=== PATIENT | male | born 1945 | race Caucasian/White ===

== ENCOUNTER 2017-03-19 19:31 | Emergency (ER) | payer MEDICARE, MEDICAID ==
[~2017-03-19] VITALS: Ht 177.8 cm; Wt 99.5 kg
[~2017-03-19 19:31] MED LIST: ARIP15TA3 PO; ASPI-1265 PO; AZIT250T PO; AZIT500T5 PO; CLOP75TA35 PO; CLOT12CR TOP; ESOM40CA PO; FINA5TAB11 PO; FLO0.4C PO; FURO20TA4 PO; METO25TA6 PO; MYCOL30CR TP; ONDA8TAB6 PO; PRAV40TA65 PO; RAMI2.5C PO; SYN0.075T PO; VAL5T PO; VENL150C58 PO
[2017-03-19 20:11] LABS: BASOPHILS # (AUTO) 0.1 X10'3 (0-0.2); BASOPHILS % (AUTO) 1.1 % (0-1); EOSINOPHILS # (AUTO) 0.1 X10'3 (0-0.9); EOSINOPHILS % (AUTO) 1.8 % (0-6); HEMATOCRIT 39.2 % (42.0-52.0); HEMOGLOBIN 13.1 g/dl (14.0-17.9); LYMPHOCYTES % (AUTO) 25.3 % (21-51); MEAN CORPUSCULAR HEMOGLOBIN 30.1 PG (27.0-31.0); MEAN CORPUSCULAR HGB CONC 33.5 % (33.0-36.5); MEAN CORPUSCULAR VOLUME 90.1 FL (78-98); MEAN PLATELET VOLUME 7.9 FL (7.4-10.4); MONOCYTES # (AUTO) 0.7 X10'3 (0-0.9); MONOCYTES % (AUTO) 8.1 % (2-12); NEUTROPHILS # (AUTO) 5.2 X10'3 (1.8-7.7); NEUTROPHILS % (AUTO) 63.7 % (42-75); PLATELET COUNT 173 X10'3 (140-440); RED BLOOD COUNT 4.36 X10'6 (4.70-6.10); RED CELL DISTRIBUTION WIDTH 15.3 % (11.5-14.5); WHITE BLOOD COUNT 8.1 X10'3 (4.5-11.0)
[2017-03-19 20:20] LABS: PARTIAL THROMBOPLASTIN TIME 25 SECONDS (22-32); PROTHROMBIN TIME 10.2 SECONDS (9.0-12.0)
[2017-03-19 20:23] LABS: ALANINE AMINOTRANSFERASE 33 U/L (12-78); ALBUMIN 3.8 G/DL (3.4-5.0); ALBUMIN/GLOBULIN RATIO 1.1 (1.1-1.5); ALKALINE PHOSPHATASE 97 IU/L (46-116); ANION GAP 7 (8-16); ASPARTATE AMINO TRANSFERASE 21 U/L (10-37); BILIRUBIN,TOTAL 0.3 MG/DL (0.1-1.0); BLOOD UREA NITROGEN 26 MG/DL (7-18); BUN/CREATININE RATIO 19.3 (5.4-32.0); CALCIUM 8.9 MG/DL (8.5-10.1); CHLORIDE 105 MMOL/L (99-107); CREATININE 1.35 MG/DL (0.60-1.10); GLUCOSE 132 MG/DL (70-104); POTASSIUM 4.1 MMOL/L (3.5-5.1); SODIUM 139 MMOL/L (135-145); TOTAL CARBON DIOXIDE 27.3 MMOL/L (24-32); TOTAL PROTEIN 7.3 G/DL (6.4-8.2); eGFR 52 ML/MIN
[2017-03-19] MEDS ORDERED: ipratropium/albuterol 3ml nebule NEB ONE (20:25)
[2017-03-19] MEDS ORDERED: albuterol 2.5 MG/3 ML nebule NEB ONE (20:25)
[2017-03-19 21:39] VITALS: BP 141/63
== END 2017-03-19 21:42 | disposition home or self-care (01) ==
LOC: ER 19:32
DX: R06.01 Orthopnea (principal); I25.2 Old myocardial infarction; I48.91 Unspecified atrial fibrillation; I10 Essential (primary) hypertension; J44.9 Chronic obstructive pulmonary disease, unspecified; K21.9 Gastro-esophageal reflux disease without esophagitis; G89.29 Other chronic pain; I25.10 Atherosclerotic heart disease of native coronary artery without angina pectoris; Z79.899 Other long term (current) drug therapy; Z79.82 Long term (current) use of aspirin; Z87.442 Personal history of urinary calculi; Z90.49 Acquired absence of other specified parts of digestive tract; Z95.1 Presence of aortocoronary bypass graft
CPT/HCPCS: 36415; 71045; 80053; 84484; 85025; 85610; 85730; 93005; 94640; 94760; 99285

== ENCOUNTER 2017-04-24 02:00 | Emergency (ER) | payer MEDICARE, MEDICAID ==
[~2017-04-24] VITALS: Ht 177.8 cm; Wt 99.7 kg
[2017-04-24] MEDS ORDERED: HYDR-3965 PO (02:16)
[2017-04-24] MEDS ORDERED: METH500T PO (02:16)
[2017-04-24] MEDS ORDERED: ONDA4TAB9 SL (02:16)
[2017-04-24 02:20] VITALS: BP 113/79
== END 2017-04-24 02:23 | disposition home or self-care (01) ==
LOC: ER 02:01
DX: S39.012A Strain of muscle, fascia and tendon of lower back, initial encounter (principal); S29.019A Strain of muscle and tendon of unspecified wall of thorax, initial encounter; I48.91 Unspecified atrial fibrillation; I25.10 Atherosclerotic heart disease of native coronary artery without angina pectoris; I10 Essential (primary) hypertension; I25.2 Old myocardial infarction; J44.9 Chronic obstructive pulmonary disease, unspecified; K21.9 Gastro-esophageal reflux disease without esophagitis; G89.29 Other chronic pain; Z90.49 Acquired absence of other specified parts of digestive tract; Z95.1 Presence of aortocoronary bypass graft; Z79.82 Long term (current) use of aspirin; Z79.899 Other long term (current) drug therapy; X50.1XXA Overexertion from prolonged static or awkward postures, initial encounter; Y93.89 Activity, other specified; Y92.89 Other specified places as the place of occurrence of the external cause; Y99.8 Other external cause status
CPT/HCPCS: 99283

== ENCOUNTER 2017-05-09 22:40 | Emergency (ER) | payer MEDICARE, MEDICAID ==
[~2017-05-09] VITALS: Ht 177.8 cm; Wt 92.8 kg
[~2017-05-09 22:40] MED LIST changes: +HYDR-3965 PO; +METH500T PO; +ONDA4TAB9 SL
[2017-05-09 23:02] VITALS: BP 121/67
== END 2017-05-10 05:16 | disposition left against medical advice (07) ==
LOC: ER 22:40
DX: M54.9 Dorsalgia, unspecified (principal); Z53.21 Procedure and treatment not carried out due to patient leaving prior to being seen by health care provider

== ENCOUNTER 2017-06-02 22:55 | Emergency (ER) | payer MEDICARE, MEDICAID ==
[~2017-06-02] VITALS: Ht 177.8 cm; Wt 85.2 kg
[~2017-06-02 22:55] MED LIST changes: -HYDR-3965 PO; -ONDA4TAB9 SL
[2017-06-02] MEDS ORDERED: aspirin 81mg tab.chew PO ONE (23:00)
[2017-06-02 23:21] LABS: BASOPHILS % (AUTO) 0.6 % (0-1); EOSINOPHILS # (AUTO) 0.3 X10'3 (0-0.9); EOSINOPHILS % (AUTO) 3.6 % (0-6); HEMATOCRIT 39.1 % (42.0-52.0); LYMPHOCYTES % (AUTO) 24.4 % (21-51); MEAN CORPUSCULAR HEMOGLOBIN 29.1 PG (27.0-31.0); MEAN CORPUSCULAR HGB CONC 33.1 % (33.0-36.5); MEAN CORPUSCULAR VOLUME 87.9 FL (78-98); MEAN PLATELET VOLUME 7.4 FL (7.4-10.4); MONOCYTES # (AUTO) 0.6 X10'3 (0-0.9); MONOCYTES % (AUTO) 7.7 % (2-12); NEUTROPHILS # (AUTO) 5.3 X10'3 (1.8-7.7); NEUTROPHILS % (AUTO) 63.7 % (42-75); PLATELET COUNT 183 X10'3 (140-440); RED BLOOD COUNT 4.46 X10'6 (4.70-6.10); RED CELL DISTRIBUTION WIDTH 16.1 % (11.5-14.5); WHITE BLOOD COUNT 8.4 X10'3 (4.5-11.0)
[2017-06-02 23:44] LABS: ALANINE AMINOTRANSFERASE 28 U/L (12-78); ALBUMIN 3.4 G/DL (3.4-5.0); ALBUMIN/GLOBULIN RATIO 0.8 (1.1-1.5); ALKALINE PHOSPHATASE 100 IU/L (46-116); ANION GAP 9 (8-16); ASPARTATE AMINO TRANSFERASE 23 U/L (10-37); BILIRUBIN,TOTAL 0.2 MG/DL (0.1-1.0); BLOOD UREA NITROGEN 18 MG/DL (7-18); BUN/CREATININE RATIO 15.5 (5.4-32.0); CALCIUM 8.7 MG/DL (8.5-10.1); CHLORIDE 106 MMOL/L (99-107); CREATININE 1.16 MG/DL (0.60-1.10); GLUCOSE 189 MG/DL (70-104); MAGNESIUM 1.6 MG/DL (1.5-2.4); POTASSIUM 4.2 MMOL/L (3.5-5.1); SODIUM 141 MMOL/L (135-145); TOTAL PROTEIN 7.5 G/DL (6.4-8.2); eGFR 62 ML/MIN
[2017-06-03 02:45] VITALS: BP 122/74
== END 2017-06-03 02:47 | disposition home or self-care (01) ==
LOC: ER 22:56
DX: R07.9 Chest pain, unspecified (principal); I48.91 Unspecified atrial fibrillation; I25.10 Atherosclerotic heart disease of native coronary artery without angina pectoris; I10 Essential (primary) hypertension; J44.9 Chronic obstructive pulmonary disease, unspecified; K21.9 Gastro-esophageal reflux disease without esophagitis; G89.29 Other chronic pain; Z90.49 Acquired absence of other specified parts of digestive tract; Z95.1 Presence of aortocoronary bypass graft; I25.2 Old myocardial infarction; Z79.82 Long term (current) use of aspirin; Z79.899 Other long term (current) drug therapy
CPT/HCPCS: 36415; 71045; 80053; 83735; 83880; 84484; 85025; 93005; 99285

== ENCOUNTER 2017-06-17 21:54 | Emergency (ER) | payer MEDICARE, MEDICAID ==
[~2017-06-17] VITALS: Ht 177.8 cm; Wt 97.8 kg
[2017-06-17 22:05] VITALS: BP 130/73
[2017-06-17] MEDS ORDERED: METR500T PO (23:11)
[2017-06-17] MEDS ORDERED: CIPR-259 PO (23:11)
[2017-06-18 04:10] LABS: OCCULT BLOOD STOOL NEGATIVE (Neg)
== END 2017-06-17 23:24 | disposition home or self-care (01) ==
LOC: ER 21:55
DX: K57.32 Diverticulitis of large intestine without perforation or abscess without bleeding (principal); R10.32 Left lower quadrant pain; I25.10 Atherosclerotic heart disease of native coronary artery without angina pectoris; I10 Essential (primary) hypertension; I25.2 Old myocardial infarction; J44.9 Chronic obstructive pulmonary disease, unspecified; K21.9 Gastro-esophageal reflux disease without esophagitis; I48.91 Unspecified atrial fibrillation; G89.29 Other chronic pain; Z90.49 Acquired absence of other specified parts of digestive tract; Z79.82 Long term (current) use of aspirin; Z79.899 Other long term (current) drug therapy
CPT/HCPCS: 74176; 82272; 99285

== ENCOUNTER 2017-07-29 02:07 | Emergency (ER) | payer MEDICARE, MEDICAID ==
[~2017-07-29] VITALS: Ht 177.8 cm; Wt 100.2 kg
[2017-07-29] MEDS ORDERED: dexamethasone sod phosphate 10mg/ml inj IV STA (02:23)
[2017-07-29] MEDS ORDERED: ipratropium/albuterol 3ml nebule NEB ONE (02:25)
[2017-07-29] MEDS ORDERED: ALB0.5UD IH (02:34)
[2017-07-29] MEDS ORDERED: PRED5TAB PO (02:34)
[2017-07-29] MEDS ORDERED: DOXY100C43 PO (02:34)
[2017-07-29 03:18] LABS: BASOPHILS % (AUTO) 0.5 % (0-1); EOSINOPHILS # (AUTO) 0.2 X10'3 (0-0.9); EOSINOPHILS % (AUTO) 3.3 % (0-6); HEMATOCRIT 39.6 % (42.0-52.0); HEMOGLOBIN 13.4 g/dl (14.0-17.9); LYMPHOCYTES % (AUTO) 27.7 % (21-51); MEAN CORPUSCULAR HEMOGLOBIN 29.9 PG (27.0-31.0); MEAN CORPUSCULAR HGB CONC 33.8 % (33.0-36.5); MEAN CORPUSCULAR VOLUME 88.5 FL (78-98); MEAN PLATELET VOLUME 7.8 FL (7.4-10.4); MONOCYTES # (AUTO) 0.6 X10'3 (0-0.9); MONOCYTES % (AUTO) 8.9 % (2-12); NEUTROPHILS # (AUTO) 4.3 X10'3 (1.8-7.7); NEUTROPHILS % (AUTO) 59.6 % (42-75); PLATELET COUNT 157 X10'3 (140-440); RED BLOOD COUNT 4.48 X10'6 (4.70-6.10); RED CELL DISTRIBUTION WIDTH 16.9 % (11.5-14.5); WHITE BLOOD COUNT 7.2 X10'3 (4.5-11.0)
[2017-07-29 03:31] LABS: ALANINE AMINOTRANSFERASE 28 U/L (12-78); ALBUMIN 3.9 G/DL (3.4-5.0); ALKALINE PHOSPHATASE 107 IU/L (46-116); ANION GAP 7 (8-16); ASPARTATE AMINO TRANSFERASE 20 U/L (10-37); BILIRUBIN,TOTAL 0.2 MG/DL (0.1-1.0); BLOOD UREA NITROGEN 18 MG/DL (7-18); BUN/CREATININE RATIO 16.7 (5.4-32.0); CALCIUM 9.1 MG/DL (8.5-10.1); CHLORIDE 106 MMOL/L (99-107); CREATININE 1.08 MG/DL (0.60-1.10); GLUCOSE 98 MG/DL (70-104); POTASSIUM 4.1 MMOL/L (3.5-5.1); SODIUM 142 MMOL/L (135-145); TOTAL PROTEIN 7.8 G/DL (6.4-8.2); eGFR 67 ML/MIN
[2017-07-29 03:41] VITALS: BP 121/76
== END 2017-07-29 03:43 | disposition home or self-care (01) ==
LOC: ER 02:08
DX: J44.1 Chronic obstructive pulmonary disease with (acute) exacerbation (principal); J20.9 Acute bronchitis, unspecified; I25.10 Atherosclerotic heart disease of native coronary artery without angina pectoris; I10 Essential (primary) hypertension; I48.91 Unspecified atrial fibrillation; K21.9 Gastro-esophageal reflux disease without esophagitis; I25.2 Old myocardial infarction; G89.29 Other chronic pain; Z87.11 Personal history of peptic ulcer disease; N40.0 Benign prostatic hyperplasia without lower urinary tract symptoms; Z87.442 Personal history of urinary calculi; Z90.49 Acquired absence of other specified parts of digestive tract; Z95.1 Presence of aortocoronary bypass graft; Z79.82 Long term (current) use of aspirin; Z79.899 Other long term (current) drug therapy
CPT/HCPCS: 36415; 71045; 80053; 83880; 84484; 85025; 93005; 94640; 94760; 96374; 99285; J1100

== ENCOUNTER 2017-08-26 23:47 | Emergency (ER) | payer MEDICARE, MEDICAID ==
[~2017-08-26] VITALS: Ht 177.8 cm; Wt 88.2 kg
[~2017-08-26 23:47] MED LIST changes: +ALB0.5UD IH; +PRED5TAB PO
[2017-08-27 01:36] LABS: ALANINE AMINOTRANSFERASE 33 U/L (12-78); ALBUMIN 3.6 G/DL (3.4-5.0); ALKALINE PHOSPHATASE 111 IU/L (46-116); ANION GAP 12 (8-16); ASPARTATE AMINO TRANSFERASE 19 U/L (10-37); BILIRUBIN,TOTAL 0.3 MG/DL (0.1-1.0); BLOOD UREA NITROGEN 17 MG/DL (7-18); BUN/CREATININE RATIO 14.8 (5.4-32.0); CALCIUM 8.8 MG/DL (8.5-10.1); CHLORIDE 106 MMOL/L (99-107); CREATININE 1.15 MG/DL (0.60-1.10); GLUCOSE 141 MG/DL (70-104); POTASSIUM 3.9 MMOL/L (3.5-5.1); SODIUM 143 MMOL/L (135-145); TOTAL CARBON DIOXIDE 25.5 MMOL/L (24-32); TOTAL PROTEIN 7.3 G/DL (6.4-8.2); eGFR 62 ML/MIN
[2017-08-27 01:37] LABS: MAGNESIUM 1.7 MG/DL (1.5-2.4)
[2017-08-27 01:41] VITALS: BP 130/65
[2017-08-27 02:15] LABS: BASOPHILS # (AUTO) 0.1 X10'3 (0-0.2); BASOPHILS % (AUTO) 0.7 % (0-1); EOSINOPHILS # (AUTO) 0.2 X10'3 (0-0.9); EOSINOPHILS % (AUTO) 2.9 % (0-6); HEMATOCRIT 37.8 % (42.0-52.0); HEMOGLOBIN 12.8 g/dl (14.0-17.9); LYMPHOCYTES % (AUTO) 27.5 % (21-51); MEAN CORPUSCULAR HEMOGLOBIN 30.1 PG (27.0-31.0); MEAN CORPUSCULAR HGB CONC 33.8 % (33.0-36.5); MEAN CORPUSCULAR VOLUME 89.2 FL (78-98); MEAN PLATELET VOLUME 8.3 FL (7.4-10.4); MONOCYTES # (AUTO) 0.6 X10'3 (0-0.9); MONOCYTES % (AUTO) 8.3 % (2-12); NEUTROPHILS # (AUTO) 4.4 X10'3 (1.8-7.7); NEUTROPHILS % (AUTO) 60.6 % (42-75); PLATELET COUNT 176 X10'3 (140-440); RED BLOOD COUNT 4.24 X10'6 (4.70-6.10); RED CELL DISTRIBUTION WIDTH 17.1 % (11.5-14.5); WHITE BLOOD COUNT 7.2 X10'3 (4.5-11.0)
== END 2017-08-27 02:29 | disposition left against medical advice (07) ==
LOC: ER 23:47
DX: R00.1 Bradycardia, unspecified (principal); R06.02 Shortness of breath; R10.84 Generalized abdominal pain; I48.91 Unspecified atrial fibrillation; I25.10 Atherosclerotic heart disease of native coronary artery without angina pectoris; I10 Essential (primary) hypertension; I25.2 Old myocardial infarction; J44.9 Chronic obstructive pulmonary disease, unspecified; K21.9 Gastro-esophageal reflux disease without esophagitis; G89.29 Other chronic pain; Z87.442 Personal history of urinary calculi; Z90.49 Acquired absence of other specified parts of digestive tract; Z98.61 Coronary angioplasty status; Z95.1 Presence of aortocoronary bypass graft; Z79.82 Long term (current) use of aspirin; Z79.899 Other long term (current) drug therapy
CPT/HCPCS: 36415; 71045; 80053; 83735; 83880; 84484; 85025; 93005; 99285

== ENCOUNTER 2017-11-28 21:01 | Emergency (ER) | payer MEDICARE, MEDICAID ==
[~2017-11-28] VITALS: Ht 177.8 cm; Wt 102.3 kg
[~2017-11-28 21:01] MED LIST changes: -ALB0.5UD IH; -RAMI2.5C PO; +RAMI2.5C2 PO
[2017-11-28 21:22] VITALS: BP 128/71
[2017-11-28] MEDS ORDERED: acetaminophen 325mg tablet PO ONE (21:45)
[2017-11-28] MEDS ORDERED: HYDR-3965 PO (21:47)
== END 2017-11-28 22:04 | disposition home or self-care (01) ==
LOC: ER 21:01
DX: M25.551 Pain in right hip (principal); I10 Essential (primary) hypertension; I25.2 Old myocardial infarction; J44.9 Chronic obstructive pulmonary disease, unspecified; I25.10 Atherosclerotic heart disease of native coronary artery without angina pectoris; I48.91 Unspecified atrial fibrillation; K21.9 Gastro-esophageal reflux disease without esophagitis; G89.29 Other chronic pain; Z90.49 Acquired absence of other specified parts of digestive tract; Z79.82 Long term (current) use of aspirin; Z79.2 Long term (current) use of antibiotics; Z79.899 Other long term (current) drug therapy
CPT/HCPCS: 99283; J7030

== ENCOUNTER 2017-12-29 12:35 | Emergency (ER) | payer MEDICARE, MEDICAID ==
[~2017-12-29] VITALS: Ht 177.8 cm; Wt 101.0 kg
[~2017-12-29 12:35] MED LIST changes: +HYDR-3965 PO
[2017-12-29 14:18] VITALS: BP 135/79
== END 2017-12-29 14:28 | disposition home or self-care (01) ==
LOC: ER 12:35
DX: S60.222A Contusion of left hand, initial encounter (principal); I48.91 Unspecified atrial fibrillation; I25.10 Atherosclerotic heart disease of native coronary artery without angina pectoris; I10 Essential (primary) hypertension; I25.2 Old myocardial infarction; J44.9 Chronic obstructive pulmonary disease, unspecified; K21.9 Gastro-esophageal reflux disease without esophagitis; G89.29 Other chronic pain; Z98.61 Coronary angioplasty status; Z90.49 Acquired absence of other specified parts of digestive tract; Z95.1 Presence of aortocoronary bypass graft; Z98.890 Other specified postprocedural states; Z79.82 Long term (current) use of aspirin; Z79.2 Long term (current) use of antibiotics; Z79.899 Other long term (current) drug therapy; W18.39XA Other fall on same level, initial encounter; Y93.89 Activity, other specified; Y92.89 Other specified places as the place of occurrence of the external cause; Y99.8 Other external cause status
CPT/HCPCS: 73080; 73130; 99284

== ENCOUNTER 2017-12-30 23:45 | Emergency (ER) | payer MEDICARE, MEDICAID ==
[~2017-12-30] VITALS: Ht 177.8 cm; Wt 97.7 kg
[2017-12-30 23:55] VITALS: BP 144/84
[2017-12-31] MEDS ORDERED: HYDROcodone/acetaminophen 5mg/325mg tablet PO ONE (01:00)
[2017-12-31] MEDS ORDERED: ondansetron 4mg rapidly disintigrating tab PO ONE (01:00)
[2017-12-31] MEDS ORDERED: HYDR-3965 PO (01:05)
[2017-12-31] MEDS ORDERED: ONDA4TAB9 PO (01:05)
== END 2017-12-31 01:47 | disposition home or self-care (01) ==
LOC: ER 23:45
DX: S63.502D Unspecified sprain of left wrist, subsequent encounter (principal); S63.602D Unspecified sprain of left thumb, subsequent encounter; I25.10 Atherosclerotic heart disease of native coronary artery without angina pectoris; I48.91 Unspecified atrial fibrillation; I10 Essential (primary) hypertension; I25.2 Old myocardial infarction; J44.9 Chronic obstructive pulmonary disease, unspecified; K21.9 Gastro-esophageal reflux disease without esophagitis; G89.29 Other chronic pain; Z90.49 Acquired absence of other specified parts of digestive tract; Z95.1 Presence of aortocoronary bypass graft; Z98.61 Coronary angioplasty status; Z79.82 Long term (current) use of aspirin; Z79.2 Long term (current) use of antibiotics; Z79.899 Other long term (current) drug therapy; W18.39XD Other fall on same level, subsequent encounter
CPT/HCPCS: 29125; 99283

== ENCOUNTER 2018-01-19 18:46 | Emergency (ER) | payer MEDICARE, MEDICAID ==
[~2018-01-19] VITALS: Ht 177.8 cm; Wt 99.7 kg
[~2018-01-19 18:46] MED LIST changes: +ONDA4TAB9 PO
[2018-01-19 18:55] VITALS: BP 128/80
[2018-01-19 21:02] LABS: CLARITY,URINE CLOUDY (Clear); COLOR,URINE YELLOW (Yellow); GLUCOSE, URINE NEGATIVE (Neg); KETONES,URINE TRACE mg/dl (Neg); LEUKOCYTE ESTERASE ,URINE SMALL (Neg); NITRITES, URINE POSITIVE (Neg); OCCULT BLOOD,URINE TRACE-INTACT (Neg); PROTEIN,URINE 30 mg/dl (Neg); UROBILINOGEN,URINE 0.2 E.U/dL (0.2-1.0)
[2018-01-19 21:05] LABS: BASOPHILS # (AUTO) 0.1 X10'3 (0-0.2); BASOPHILS % (AUTO) 0.7 % (0-1); EOSINOPHILS # (AUTO) 0.1 X10'3 (0-0.9); LYMPHOCYTES # (AUTO) 1.1 X10'3 (1.1-4.8); LYMPHOCYTES % (AUTO) 14.3 % (21-51); MEAN CORPUSCULAR HEMOGLOBIN 30.6 PG (27.0-31.0); MEAN CORPUSCULAR HGB CONC 33.3 % (33.0-36.5); MEAN PLATELET VOLUME 7.6 FL (7.4-10.4); MONOCYTES # (AUTO) 0.7 X10'3 (0-0.9); MONOCYTES % (AUTO) 8.6 % (2-12); NEUTROPHILS # (AUTO) 5.7 X10'3 (1.8-7.7); NEUTROPHILS % (AUTO) 75.4 % (42-75); PLATELET COUNT 166 X10'3 (140-440); RED BLOOD COUNT 3.92 X10'6 (4.70-6.10); RED CELL DISTRIBUTION WIDTH 15.2 % (11.5-14.5); WHITE BLOOD COUNT 7.6 X10'3 (4.5-11.0)
[2018-01-19 21:14] LABS: UA COLLECTION TYPE STRAIGHT CATH
[2018-01-19 21:15] LABS: BACTERIA,URINE 4+ /HPF (Neg); RBC,URINE 0-2 /HPF (0-2); SQUAMOUS EPITHELIAL CELL,UR FEW /LPF (FEW); WBC CLUMPS,URINE FEW /HPF (NEGATIVE); WBC,URINE 30-50 /HPF (0-4)
[2018-01-19] MEDS ORDERED: HYDROcodone/acetaminophen 10/325mg tab PO ONE (21:15)
[2018-01-19 21:22] LABS: ALANINE AMINOTRANSFERASE 34 U/L (12-78); ALBUMIN 3.1 G/DL (3.4-5.0); ALBUMIN/GLOBULIN RATIO 0.8 (1.1-1.5); ALKALINE PHOSPHATASE 97 IU/L (46-116); ANION GAP 10 (8-16); ASPARTATE AMINO TRANSFERASE 21 U/L (10-37); BILIRUBIN,TOTAL 0.4 MG/DL (0.1-1.0); BLOOD UREA NITROGEN 22 MG/DL (7-18); BUN/CREATININE RATIO 17.1 (5.4-32.0); CALCIUM 8.9 MG/DL (8.5-10.1); CHLORIDE 100 MMOL/L (99-107); CREATININE 1.29 MG/DL (0.60-1.10); GLUCOSE 135 MG/DL (70-104); POTASSIUM 3.8 MMOL/L (3.5-5.1); SODIUM 135 MMOL/L (135-145); TOTAL PROTEIN 6.9 G/DL (6.4-8.2); eGFR 54 ML/MIN
[2018-01-19] MEDS ORDERED: sulfamethoxazole/trimethoprim DS (800/160mg) tablet PO ONE (21:25)
[2018-01-19] MEDS ORDERED: SULF1TAB49 PO (21:32)
[2018-01-19] MEDS ORDERED: ACET-3068 PO (21:45)
[2018-01-19] MEDS ORDERED: HYDR-4353 PO (21:49)
== END 2018-01-19 21:54 | disposition home or self-care (01) ==
LOC: ER 18:47
DX: N39.0 Urinary tract infection, site not specified (principal); C61 Malignant neoplasm of prostate; R10.31 Right lower quadrant pain; R10.32 Left lower quadrant pain; I48.91 Unspecified atrial fibrillation; I25.10 Atherosclerotic heart disease of native coronary artery without angina pectoris; I10 Essential (primary) hypertension; J44.9 Chronic obstructive pulmonary disease, unspecified; K21.9 Gastro-esophageal reflux disease without esophagitis; G89.29 Other chronic pain; Z95.5 Presence of coronary angioplasty implant and graft; Z90.49 Acquired absence of other specified parts of digestive tract; Z95.1 Presence of aortocoronary bypass graft; Z87.11 Personal history of peptic ulcer disease; Z87.891 Personal history of nicotine dependence; Z79.82 Long term (current) use of aspirin; Z79.899 Other long term (current) drug therapy
CPT/HCPCS: 36415; 51702; 80053; 81001; 85025; 87077; 87088; 87186; 99284

== ENCOUNTER 2018-01-22 23:02 | Emergency (ER) | payer MEDICARE, MEDICAID ==
[~2018-01-22] VITALS: Ht 177.8 cm; Wt 98.5 kg
[~2018-01-22 23:02] MED LIST changes: +ACET-3068 PO; +HYDR-4353 PO; +SULF1TAB49 PO
[2018-01-23 00:12] VITALS: BP 133/75
[2018-01-23] MEDS ORDERED: PHEN-716 PO (01:35)
[2018-01-23] MEDS ORDERED: LIDOcaine 2% 10ml TOPICAL JELLY (Urojet) MM ONE (01:40)
[2018-01-23] MEDS ORDERED: phenazopyridine 100mg tablet PO ONE (01:40)
== END 2018-01-23 02:27 | disposition home or self-care (01) ==
LOC: ER 23:02
DX: R30.0 Dysuria (principal); I48.91 Unspecified atrial fibrillation; I25.10 Atherosclerotic heart disease of native coronary artery without angina pectoris; I10 Essential (primary) hypertension; I25.2 Old myocardial infarction; J44.9 Chronic obstructive pulmonary disease, unspecified; K21.9 Gastro-esophageal reflux disease without esophagitis; G89.29 Other chronic pain; Z95.5 Presence of coronary angioplasty implant and graft; Z90.49 Acquired absence of other specified parts of digestive tract; Z95.1 Presence of aortocoronary bypass graft; Z87.11 Personal history of peptic ulcer disease; Z79.82 Long term (current) use of aspirin; Z79.899 Other long term (current) drug therapy
CPT/HCPCS: 99283

== ENCOUNTER 2018-02-18 01:48 | Emergency (ER) | payer MEDICARE, MEDICAID ==
[~2018-02-18] VITALS: Ht 177.8 cm; Wt 86.0 kg
[~2018-02-18 01:48] MED LIST changes: -ACET-3068 PO; -HYDR-3965 PO; -HYDR-4353 PO; -ONDA4TAB9 PO; +PHEN-716 PO; -SULF1TAB49 PO
[2018-02-18 01:50] VITALS: BP 119/66
[2018-02-18] MEDS ORDERED: mag hydrox/Alum hydrox/simeth 30ml oral suspension PO ONE (02:05)
[2018-02-18] MEDS ORDERED: LIDOcaine Viscous 15ml cup PO ONE (02:05)
[2018-02-18] MEDS ORDERED: LIDO15SO2 PO (02:56)
[2018-02-18] MEDS ORDERED: NYST1000 PO (02:56)
== END 2018-02-18 03:08 | disposition home or self-care (01) ==
LOC: ER 01:48
DX: K20.8 Other esophagitis (principal); J02.9 Acute pharyngitis, unspecified; I48.91 Unspecified atrial fibrillation; I25.10 Atherosclerotic heart disease of native coronary artery without angina pectoris; I10 Essential (primary) hypertension; I25.2 Old myocardial infarction; J44.9 Chronic obstructive pulmonary disease, unspecified; K21.9 Gastro-esophageal reflux disease without esophagitis; G89.29 Other chronic pain; Z87.891 Personal history of nicotine dependence; Z85.46 Personal history of malignant neoplasm of prostate; Z95.5 Presence of coronary angioplasty implant and graft; Z90.49 Acquired absence of other specified parts of digestive tract; Z95.1 Presence of aortocoronary bypass graft; Z87.442 Personal history of urinary calculi; Z87.11 Personal history of peptic ulcer disease; Z79.899 Other long term (current) drug therapy; Z79.82 Long term (current) use of aspirin
CPT/HCPCS: 87081; 87880; 99283

== ENCOUNTER 2018-03-28 19:40 | Emergency (ER) | payer MEDICARE, MEDICAID ==
[~2018-03-28] VITALS: Ht 177.8 cm; Wt 98.0 kg
[~2018-03-28 19:40] MED LIST changes: +LIDO15SO2 PO
[2018-03-28] MEDS ORDERED: normal saline 1000ml 1,000 ML IV ONE (20:40)
--- NOTE | 2018-03-28 20:52 | NUR ---
BXC X2 COMPLETED, LACTIC COLLECTED, FLU SWAB COLLECTED, CURRENT VSS. AT BEDSIDE. PT IS COOPERATIVE AND PLEASANT.
[2018-03-28 21:08] LABS: BASOPHILS # (AUTO) 0.1 X10'3 (0-0.2); EOSINOPHILS # (AUTO) 0.3 X10'3 (0-0.9); EOSINOPHILS % (AUTO) 2.7 % (0-6); HEMATOCRIT 36.1 % (42.0-52.0); HEMOGLOBIN 11.8 g/dl (14.0-17.9); LYMPHOCYTES % (AUTO) 10.6 % (21-51); MEAN CORPUSCULAR HEMOGLOBIN 30.8 PG (27.0-31.0); MEAN CORPUSCULAR HGB CONC 32.8 % (33.0-36.5); MEAN CORPUSCULAR VOLUME 93.7 FL (78-98); MEAN PLATELET VOLUME 7.9 FL (7.4-10.4); MONOCYTES # (AUTO) 0.6 X10'3 (0-0.9); MONOCYTES % (AUTO) 6.6 % (2-12); NEUTROPHILS # (AUTO) 7.7 X10'3 (1.8-7.7); NEUTROPHILS % (AUTO) 79.1 % (42-75); PLATELET COUNT 172 X10'3 (140-440); RED BLOOD COUNT 3.85 X10'6 (4.70-6.10); RED CELL DISTRIBUTION WIDTH 15.6 % (11.5-14.5); WHITE BLOOD COUNT 9.7 X10'3 (4.5-11.0)
[2018-03-28 21:10] LABS: ALANINE AMINOTRANSFERASE 47 U/L (12-78); ALBUMIN 3.4 G/DL (3.4-5.0); ALBUMIN/GLOBULIN RATIO 0.9 (1.1-1.5); ALKALINE PHOSPHATASE 95 IU/L (46-116); ANION GAP 11 (8-16); ASPARTATE AMINO TRANSFERASE 27 U/L (10-37); BILIRUBIN,TOTAL 0.3 MG/DL (0.1-1.0); BLOOD UREA NITROGEN 13 MG/DL (7-18); BUN/CREATININE RATIO 10.2 (5.4-32.0); CALCIUM 8.1 MG/DL (8.5-10.1); CHLORIDE 104 MMOL/L (99-107); CREATININE 1.28 MG/DL (0.60-1.10); GLUCOSE 205 MG/DL (70-104); POTASSIUM 4.1 MMOL/L (3.5-5.1); SODIUM 141 MMOL/L (135-145); TOTAL CARBON DIOXIDE 26.1 MMOL/L (24-32); TOTAL PROTEIN 7.1 G/DL (6.4-8.2); eGFR 55 ML/MIN
[2018-03-28 21:17] LABS: TROPONIN I < 0.04 NG/ML (0.0-0.05)
[2018-03-28] MEDS ORDERED: albuterol 2.5 mg/0.5ml nebule NEB ONE (21:20)
[2018-03-28 21:22] LABS: D-DIMER 4.11 MG/L FEU (0-0.50); PARTIAL THROMBOPLASTIN TIME 26 SECONDS (22-32); PROTHROMBIN TIME 10.4 SECONDS (9.0-12.0)
[2018-03-28] MEDS ORDERED: albuterol 2.5 MG/3 ML nebule NEB ONE (21:25)
[2018-03-28] MEDS ORDERED: iohexol 350MG/ML 100ml bottle IV ONE (22:11)
[2018-03-28 22:16] LABS: CLARITY,URINE SLIGHTLY CLOUDY (Clear); COLOR,URINE YELLOW (Yellow); GLUCOSE, URINE NEGATIVE (Neg); KETONES,URINE NEGATIVE (Neg); LEUKOCYTE ESTERASE ,URINE TRACE (Neg); NITRITES, URINE POSITIVE (Neg); OCCULT BLOOD,URINE TRACE-INTACT (Neg); PH,URINE 6.5 (4.8-8.0); PROTEIN,URINE NEGATIVE (Neg); UROBILINOGEN,URINE 0.2 E.U/dL (0.2-1.0)
[2018-03-28 22:18] LABS: UA COLLECTION TYPE CLN CATCH MIDSTREAM
[2018-03-28 22:24] LABS: BACTERIA,URINE 4+ /HPF (Neg); SQUAMOUS EPITHELIAL CELL,UR FEW /LPF (FEW); WBC CLUMPS,URINE FEW /HPF (NEGATIVE); WBC,URINE 30-50 /HPF (0-4)
[2018-03-28 22:25] LABS: RBC,URINE 0-2 /HPF (0-2)
[2018-03-28] MEDS ORDERED: azithromycin 250mg tablet PO ONE (23:25)
[2018-03-28] MEDS ORDERED: AZIT250T PO (23:38)
[2018-03-28 23:39] VITALS: BP 144/63
--- NOTE | 2018-03-31 08:57 | NUR ---
PT WAS CALLED FOR STATUS UPDATE. PT STATES THAT HE IS FEELING BETTER. HE WAS INFORMED THAT HIS ABX FOR HIS UTI WAS BEING CHANGED FROM Z-LOUIE TO KEFLEX 500MG PO, QID X28. [facility] WAS CALLED ([phone])
== END 2018-03-28 23:45 | disposition home or self-care (01) ==
LOC: ER 20:14
DX: J20.9 Acute bronchitis, unspecified (principal); J44.9 Chronic obstructive pulmonary disease, unspecified; I48.91 Unspecified atrial fibrillation; I25.10 Atherosclerotic heart disease of native coronary artery without angina pectoris; I10 Essential (primary) hypertension; I25.2 Old myocardial infarction; K21.9 Gastro-esophageal reflux disease without esophagitis; G89.29 Other chronic pain; Z87.11 Personal history of peptic ulcer disease; Z87.442 Personal history of urinary calculi; Z95.5 Presence of coronary angioplasty implant and graft; Z90.49 Acquired absence of other specified parts of digestive tract; Z95.1 Presence of aortocoronary bypass graft; Z79.82 Long term (current) use of aspirin; Z79.899 Other long term (current) drug therapy
CPT/HCPCS: 36415; 71045; 71275; 80053; 81001; 83605; 83880; 84484; 85025; 85379; 85610; 85730; 87040; 87077; 87088; 87186; 87502; 87503; 93005; 94640; 94760; 99284; J7030; J7611; Q9967

== ENCOUNTER 2018-07-04 09:49 | Day surgery (SDC) | payer MEDICARE, MEDICAID ==
[2018-07-04 10:10] VITALS: BP 138/61
[2018-07-04] MEDS ORDERED: fentaNYL/PF 50MCG/1 ML 2ML syringe ONE ×2 (10:11→10:29)
[2018-07-04] MEDS ORDERED: MIDAZolam 5mg/5ml vial ONE (10:11)
[2018-07-04] MEDS ORDERED: TRIA1CAP2 PO (10:14)
[2018-07-04] MEDS ORDERED: IRON18TA PO (10:15)
[2018-07-04] MEDS ORDERED: DICL75TA5 PO (10:16)
[2018-07-04] MEDS ORDERED: DOCU100C33 PO (10:16)
[2018-07-04] MEDS ORDERED: VIT1CAPS46 PO (10:17)
[2018-07-04] MEDS ORDERED: MULT-1085 PO (10:18)
[2018-07-04] MEDS ORDERED: HYDR-4383 PO (10:27)
[2018-07-04 10:37] VITALS: BP 129/50
[2018-07-04 10:47] VITALS: BP 128/73
[2018-07-04 10:57] VITALS: BP 122/55
[2018-07-04 11:07] VITALS: BP 122/68
== END 2018-07-04 11:15 | disposition home or self-care (01) ==
LOC: GI LAB 09:49
PROVIDERS: ATTEND Internal Medicine Gastroenterology
DX: D12.5 Benign neoplasm of sigmoid colon (principal); K64.8 Other hemorrhoids; K57.30 Diverticulosis of large intestine without perforation or abscess without bleeding
CPT/HCPCS: 45380; G0500; J2250; J3010; J7030; 50555; 99152; A4620

== ENCOUNTER 2018-07-08 05:18 | Emergency (ER) | payer MEDICARE, MEDICAID ==
[~2018-07-08] VITALS: Ht 177.8 cm; Wt 100.0 kg
[~2018-07-08 05:18] MED LIST changes: -AZIT250T PO; -AZIT500T5 PO; -CLOT12CR TOP; +DICL75TA5 PO; +DOCU100C33 PO; -FURO20TA4 PO; +HYDR-4383 PO; +IRON18TA PO; -LIDO15SO2 PO; -METH500T PO; +MULT-1085 PO; -MYCOL30CR TP; -ONDA8TAB6 PO; -PHEN-716 PO; -PRED5TAB PO; -RAMI2.5C2 PO; +TRIA1CAP2 PO
[2018-07-08 05:25] VITALS: BP 112/60
[2018-07-08] MEDS ORDERED: ANBESOL TP (05:43)
[2018-07-08] MEDS ORDERED: LIDOcaine Viscous 15ml cup MM PRN (05:45)
== END 2018-07-08 05:53 | disposition home or self-care (01) ==
LOC: ER 05:19
DX: K13.79 Other lesions of oral mucosa (principal); I48.91 Unspecified atrial fibrillation; I25.10 Atherosclerotic heart disease of native coronary artery without angina pectoris; I10 Essential (primary) hypertension; I25.2 Old myocardial infarction; J44.9 Chronic obstructive pulmonary disease, unspecified; K21.9 Gastro-esophageal reflux disease without esophagitis; G89.29 Other chronic pain; Z87.11 Personal history of peptic ulcer disease; Z87.442 Personal history of urinary calculi; Z95.5 Presence of coronary angioplasty implant and graft; Z90.49 Acquired absence of other specified parts of digestive tract; Z95.1 Presence of aortocoronary bypass graft; Z79.899 Other long term (current) drug therapy; Z79.82 Long term (current) use of aspirin
CPT/HCPCS: 99282

== ENCOUNTER 2018-07-12 22:29 | Emergency (ER) | payer MEDICARE, MEDICAID ==
[~2018-07-12] VITALS: Ht 177.8 cm; Wt 98.0 kg
[~2018-07-12 22:29] MED LIST changes: +ANBESOL TP
[2018-07-12 23:17] LABS: BASOPHILS # (AUTO) 0.1 X10'3 (0-0.2); BASOPHILS % (AUTO) 1.5 % (0-1); EOSINOPHILS # (AUTO) 0.1 X10'3 (0-0.9); EOSINOPHILS % (AUTO) 2.7 % (0-6); HEMATOCRIT 24.7 % (42.0-52.0); HEMOGLOBIN 8.3 g/dl (14.0-17.9); LYMPHOCYTES # (AUTO) 0.6 X10'3 (1.1-4.8); LYMPHOCYTES % (AUTO) 14.4 % (21-51); MEAN CORPUSCULAR HEMOGLOBIN 32.3 PG (27.0-31.0); MEAN CORPUSCULAR HGB CONC 33.4 g/dL (33.0-36.5); MEAN CORPUSCULAR VOLUME 96.7 FL (78-98); MEAN PLATELET VOLUME 7.4 FL (7.4-10.4); MONOCYTES # (AUTO) 0.5 X10'3 (0-0.9); MONOCYTES % (AUTO) 12.8 % (2-12); NEUTROPHILS # (AUTO) 2.6 X10'3 (1.8-7.7); NEUTROPHILS % (AUTO) 68.6 % (42-75); PLATELET COUNT 115 X10'3 (140-440); RED BLOOD COUNT 2.56 X10'6 (4.70-6.10); RED CELL DISTRIBUTION WIDTH 17.2 % (11.5-14.5); WHITE BLOOD COUNT 3.8 X10'3 (4.5-11.0)
[2018-07-12 23:35] LABS: ALANINE AMINOTRANSFERASE 41 U/L (12-78); ALBUMIN 3.1 G/DL (3.4-5.0); ALBUMIN/GLOBULIN RATIO 0.9 (1.1-1.5); ALKALINE PHOSPHATASE 93 IU/L (46-116); ANION GAP 10 (8-16); ASPARTATE AMINO TRANSFERASE 32 U/L (10-37); BILIRUBIN,TOTAL 0.2 MG/DL (0.1-1.0); BLOOD UREA NITROGEN 31 MG/DL (7-18); BUN/CREATININE RATIO 16.4 (5.4-32.0); CALCIUM 8.5 MG/DL (8.5-10.1); CHLORIDE 108 MMOL/L (99-107); CREATININE 1.89 MG/DL (0.60-1.10); GLUCOSE 119 MG/DL (70-104); POTASSIUM 4.2 MMOL/L (3.5-5.1); SODIUM 139 MMOL/L (135-145); TOTAL CARBON DIOXIDE 21.4 MMOL/L (24-32); TOTAL PROTEIN 6.5 G/DL (6.4-8.2); eGFR 35 ML/MIN
[2018-07-12 23:39] LABS: INR 1.1 INR; PARTIAL THROMBOPLASTIN TIME 27 SECONDS (22-32)
[2018-07-13 01:02] VITALS: BP 111/59
== END 2018-07-13 01:07 | disposition home or self-care (01) ==
LOC: ER 22:30
DX: R06.02 Shortness of breath (principal); R07.89 Other chest pain; I10 Essential (primary) hypertension; I48.91 Unspecified atrial fibrillation; I25.10 Atherosclerotic heart disease of native coronary artery without angina pectoris; I25.2 Old myocardial infarction; J44.9 Chronic obstructive pulmonary disease, unspecified; K21.9 Gastro-esophageal reflux disease without esophagitis; G89.29 Other chronic pain; M54.9 Dorsalgia, unspecified; Z95.1 Presence of aortocoronary bypass graft; Z90.49 Acquired absence of other specified parts of digestive tract; Z87.891 Personal history of nicotine dependence; Z79.82 Long term (current) use of aspirin
CPT/HCPCS: 36415; 71045; 80053; 84484; 85025; 85610; 85730; 93005; 99284

== ENCOUNTER 2018-10-27 14:43 | Emergency (ER) | payer MEDICARE, MEDICAID ==
[~2018-10-27] VITALS: Ht 177.8 cm; Wt 103.2 kg
[~2018-10-27 14:43] MED LIST changes: -ANBESOL TP
[2018-10-27 15:26] LABS: CLARITY,URINE CLEAR (Clear); COLOR,URINE YELLOW (Yellow); GLUCOSE, URINE NEGATIVE (Neg); KETONES,URINE TRACE mg/dl (Neg); LEUKOCYTE ESTERASE ,URINE NEGATIVE (Neg); NITRITES, URINE NEGATIVE (Neg); OCCULT BLOOD,URINE NEGATIVE (Neg); PROTEIN,URINE TRACE mg/dl (Neg); UROBILINOGEN,URINE 0.2 E.U/dL (0.2-1.0)
[2018-10-27 15:27] LABS: BASOPHILS % (AUTO) 0.8 % (0-1); EOSINOPHILS # (AUTO) 0.1 X10'3 (0-0.9); EOSINOPHILS % (AUTO) 2.9 % (0-6); HEMATOCRIT 25.7 % (42.0-52.0); HEMOGLOBIN 8.5 g/dl (14.0-17.9); LYMPHOCYTES # (AUTO) 0.8 X10'3 (1.1-4.8); MEAN CORPUSCULAR HGB CONC 32.9 g/dL (33.0-36.5); MEAN CORPUSCULAR VOLUME 97.1 FL (78-98); MEAN PLATELET VOLUME 8.9 FL (7.4-10.4); MONOCYTES # (AUTO) 0.6 X10'3 (0-0.9); MONOCYTES % (AUTO) 11.7 % (2-12); NEUTROPHILS # (AUTO) 3.4 X10'3 (1.8-7.7); NEUTROPHILS % (AUTO) 68.6 % (42-75); PLATELET COUNT 55 X10'3 (140-440); RED BLOOD COUNT 2.65 X10'6 (4.70-6.10); RED CELL DISTRIBUTION WIDTH 16.6 % (11.5-14.5); WHITE BLOOD COUNT 4.9 X10'3 (4.5-11.0)
[2018-10-27 15:29] LABS: UA COLLECTION TYPE CLN CATCH MIDSTREAM
[2018-10-27 15:33] LABS: BACTERIA,URINE NONE SEEN /HPF (Neg); HYALINE CASTS 0-3 /LPF (NEGATIVE); MUCUS STRANDS FEW /LPF (Neg); RBC,URINE 0-2 /HPF (0-2); SQUAMOUS EPITHELIAL CELL,UR FEW /LPF (FEW); WBC,URINE NONE SEEN /HPF (0-4)
[2018-10-27 15:37] LABS: ALANINE AMINOTRANSFERASE 33 U/L (12-78); ALBUMIN/GLOBULIN RATIO 0.7 (1.1-1.5); ALKALINE PHOSPHATASE 137 IU/L (46-116); AMYLASE 14 U/L (25-115); ANION GAP 13 (8-16); ASPARTATE AMINO TRANSFERASE 20 U/L (10-37); BILIRUBIN,TOTAL 0.4 MG/DL (0.1-1.0); BLOOD UREA NITROGEN 37 MG/DL (7-18); BUN/CREATININE RATIO 18.1 (5.4-32.0); CALCIUM 8.6 MG/DL (8.5-10.1); CHLORIDE 106 MMOL/L (99-107); CREATININE 2.04 MG/DL (0.60-1.10); GLUCOSE 127 MG/DL (70-104); LIPASE 73 U/L (73-393); SODIUM 142 MMOL/L (135-145); TOTAL CARBON DIOXIDE 23.1 MMOL/L (24-32); TOTAL PROTEIN 7.1 G/DL (6.4-8.2); eGFR 32 ML/MIN
[2018-10-27 16:10] LABS: NUCLEATED RED BLOOD CELLS 3 /100WBC (0-0); TOTAL CELLS COUNTED 100
[2018-10-27 16:18] LABS: ANISOCYTOSIS 1+; ELLIPTOCYTES FEW; PLATELET ESTIMATE DECREASED; POLYCHROMASIA 1+; SCHISTOCYTES FEW; TEAR DROP CELLS FEW
[2018-10-27 16:19] LABS: ACANTHOCYTES FEW; LARGE PLATELETS FEW
[2018-10-27] MEDS ORDERED: normal saline 1000ML IV soln IVB ONE (17:00)
[2018-10-27] MEDS ORDERED: morphine 4 MG/ML inj SYRINge IV ONE (17:00)
[2018-10-27] MEDS ORDERED: ondansetron/PF 4mg/2ml inj IV ONE (19:10)
[2018-10-27] MEDS ORDERED: amox tr/potassium clavulanate 875/125mg TAB PO ONE (19:10)
[2018-10-27] MEDS ORDERED: AMOX-580 PO (19:12)
[2018-10-27] MEDS ORDERED: ONDA8TAB6 PO (19:12)
[2018-10-27 19:35] VITALS: BP 105/65
== END 2018-10-27 19:37 | disposition home or self-care (01) ==
LOC: ER 14:44
DX: K57.92 Diverticulitis of intestine, part unspecified, without perforation or abscess without bleeding (principal); I48.91 Unspecified atrial fibrillation; I25.10 Atherosclerotic heart disease of native coronary artery without angina pectoris; I10 Essential (primary) hypertension; I25.2 Old myocardial infarction; J43.9 Emphysema, unspecified; K21.9 Gastro-esophageal reflux disease without esophagitis; N40.0 Benign prostatic hyperplasia without lower urinary tract symptoms; G89.29 Other chronic pain; F31.9 Bipolar disorder, unspecified; Z87.11 Personal history of peptic ulcer disease; Z87.442 Personal history of urinary calculi; Z98.61 Coronary angioplasty status; Z90.49 Acquired absence of other specified parts of digestive tract; Z95.1 Presence of aortocoronary bypass graft; Z98.890 Other specified postprocedural states; Z79.2 Long term (current) use of antibiotics; Z79.82 Long term (current) use of aspirin; Z79.899 Other long term (current) drug therapy
CPT/HCPCS: 36415; 74176; 80053; 81001; 82150; 83690; 85025; 85610; 96374; 96375; 99284; J2270; J2405; J7030

== ENCOUNTER 2018-12-14 14:01 | Inpatient (IN) | payer MEDICARE, MEDICAID ==
[~2018-12-14] VITALS: Ht 177.8 cm; Wt 88.0 kg
[2018-12-14] VITALS (10 sets, daily range): BP systolic 106–119; BP diastolic 50–96
[~2018-12-14 14:01] MED LIST changes: +ONDA8TAB6 PO
[2018-12-14 15:02] LABS: EOSINOPHILS # (AUTO) 0.1 X10'3 (0-0.9); LYMPHOCYTES # (AUTO) 0.6 X10'3 (1.1-4.8)
[2018-12-14 15:04] LABS: BASOPHILS % (AUTO) 0.7 % (0-1); EOSINOPHILS % (AUTO) 2.7 % (0-6); LYMPHOCYTES % (AUTO) 12.8 % (21-51); MEAN CORPUSCULAR HEMOGLOBIN 31.2 PG (27.0-31.0); MEAN CORPUSCULAR HGB CONC 32.6 g/dL (33.0-36.5); MEAN CORPUSCULAR VOLUME 95.7 FL (78-98); MEAN PLATELET VOLUME 7.9 FL (7.4-10.4); MONOCYTES # (AUTO) 0.6 X10'3 (0-0.9); MONOCYTES % (AUTO) 14.3 % (2-12); NEUTROPHILS # (AUTO) 3.1 X10'3 (1.8-7.7); NEUTROPHILS % (AUTO) 69.5 % (42-75); RED BLOOD COUNT 2.04 X10'6 (4.70-6.10); RED CELL DISTRIBUTION WIDTH 20.3 % (11.5-14.5); WHITE BLOOD COUNT 4.4 X10'3 (4.5-11.0)
[2018-12-14 15:24] LABS: HEMATOCRIT 19.6 % (42.0-52.0); HEMOGLOBIN 6.4 g/dl (14.0-17.9)
[2018-12-14 15:25] LABS: PLATELET COUNT 43 X10'3 (140-440)
[2018-12-14 15:40] LABS: ALANINE AMINOTRANSFERASE 25 U/L (12-78); ALBUMIN 2.9 G/DL (3.4-5.0); ALBUMIN/GLOBULIN RATIO 0.7 (1.1-1.5); ALKALINE PHOSPHATASE 138 IU/L (46-116); ANION GAP 8 (8-16); ASPARTATE AMINO TRANSFERASE 16 U/L (10-37); BILIRUBIN,TOTAL 0.6 MG/DL (0.1-1.0); BLOOD UREA NITROGEN 32 MG/DL (7-18); BUN/CREATININE RATIO 20.8 (5.4-32.0); CALCIUM 8.5 MG/DL (8.5-10.1); CHLORIDE 105 MMOL/L (99-107); CREATININE 1.54 MG/DL (0.60-1.10); GLUCOSE 138 MG/DL (70-104); POTASSIUM 3.9 MMOL/L (3.5-5.1); SODIUM 142 MMOL/L (135-145); TOTAL CARBON DIOXIDE 28.9 MMOL/L (24-32); TOTAL PROTEIN 6.9 G/DL (6.4-8.2); eGFR 44 ML/MIN
[2018-12-14] MEDS ORDERED: ondansetron/PF 4mg/2ml inj IV ONE (15:40)
[2018-12-14] MEDS ORDERED: normal saline 1000ML IV soln IVB ONE (15:40)
[2018-12-14] MEDS: morphine 2 MG/ML inj. syringe IV PRN ×2 (16:02→16:34)
[2018-12-14 16:11] LABS: ANISOCYTOSIS 3+; ELLIPTOCYTES FEW; LARGE PLATELETS FEW; NUCLEATED RED BLOOD CELLS 5 /100WBC (0-0); PLATELET ESTIMATE DECREASED; POIKILOCYTOSIS 1+; POLYCHROMASIA 1+; SCHISTOCYTES FEW; TEAR DROP CELLS FEW; TOTAL CELLS COUNTED 100
--- NOTE | 2018-12-14 16:25 | NUR ---
primary rn was given a break at this time
[2018-12-14 17:08] LABS: CLARITY,URINE CLEAR (Clear); COLOR,URINE YELLOW (Yellow); GLUCOSE, URINE NEGATIVE (Neg); KETONES,URINE NEGATIVE (Neg); LEUKOCYTE ESTERASE ,URINE NEGATIVE (Neg); NITRITES, URINE NEGATIVE (Neg); OCCULT BLOOD,URINE NEGATIVE (Neg); PH,URINE 5.5 (4.8-8.0); PROTEIN,URINE NEGATIVE (Neg); UROBILINOGEN,URINE 0.2 E.U/dL (0.2-1.0)
[2018-12-14 17:09] LABS: UA COLLECTION TYPE FOLEY CATH
--- NOTE | 2018-12-14 17:16 | NUR ---
CALLED [facility] 0821 WAITING CARE TRANSITION MANAGER BACK DAVIDA MORGAN
--- NOTE | 2018-12-14 18:25 | NUR ---
Returned to room from MRI.
[2018-12-14] MEDS ORDERED: ATOR40TA PO (18:37)
[2018-12-14] MEDS ORDERED: DICL100T2 PO (18:37)
[2018-12-14] MEDS ORDERED: MECL12.584 PO (18:37)
[2018-12-14] MEDS ORDERED: FLO0.4C PO (18:37)
[2018-12-14] MEDS ORDERED: ESOM40CA49 PO (18:37)
[2018-12-14] MEDS ORDERED: VENL75TA4 PO (18:37)
[2018-12-14] MEDS ORDERED: ARIP20TA4 PO (18:41)
[2018-12-14] MEDS ORDERED: AMLO2.5T2 PO (18:41)
[2018-12-14] MEDS ORDERED: TRIA1CAP2 PO (18:42)
--- NOTE | 2018-12-14 18:50 | NUR ---
pt began to desat to 80's while dozing. Pt put on 02 1 L. O2 now stable at 97%
[2018-12-14] MEDS ORDERED: acetaminophen 325mg tablet PO PRN (20:00)
[2018-12-14] MEDS ORDERED: mag hydrox/Alum hydrox/simeth 30ml oral suspension PO PRN (20:00)
[2018-12-14] MEDS ORDERED: ondansetron/PF 4mg/2ml inj IV PRN (20:00)
[2018-12-14] MEDS ORDERED: magnesium hydroxide 30ml (MOM) UD suspension PO PRN (20:00)
[2018-12-14] MEDS ORDERED: diazepam 5mg tablet PO PRN (20:00)
[2018-12-14] MEDS ORDERED: HYDROcodone/acetaminophen 5mg/325mg tablet PO PRN (20:00)
[2018-12-14 22:12] LABS: OCCULT BLOOD STOOL POSITIVE (Neg)
--- NOTE | 2018-12-14 22:13 | NUR ---
Patient in room ED 7. I have received report from Saadia, ED RN and had the opportunity to ask questions and assume patient care. Awaiting pt to be in room 346A
[2018-12-14] MEDS: normal saline 1000ml 1,000 ML IV SCH (22:46)
[2018-12-14] MEDS: metoprolol tartrate 25mg tablet PO SCH (23:30)
[2018-12-14] MEDS: venlafaxine 37.5mg tablet PO SCH (23:38)
[2018-12-14] MEDS: tamsulosin 0.4mg capsule PO SCH (23:38)
[2018-12-15] MEDS: normal saline 1000ml 1,000 ML IV SCH (00:14)
[2018-12-15 00:57] VITALS: BP 112/54
[2018-12-15 06:35] LABS: BASOPHILS # (AUTO) 0.1 X10'3 (0-0.2); EOSINOPHILS # (AUTO) 0.1 X10'3 (0-0.9); HEMOGLOBIN 7.4 g/dl (14.0-17.9); LYMPHOCYTES # (AUTO) 0.6 X10'3 (1.1-4.8); MONOCYTES # (AUTO) 0.6 X10'3 (0-0.9); WHITE BLOOD COUNT 3.7 X10'3 (4.5-11.0)
[2018-12-15 06:39] LABS: BASOPHILS % (AUTO) 1.9 % (0-1); EOSINOPHILS % (AUTO) 2.8 % (0-6); MEAN CORPUSCULAR HEMOGLOBIN 31.1 PG (27.0-31.0); MEAN CORPUSCULAR HGB CONC 34.1 g/dL (33.0-36.5); MEAN CORPUSCULAR VOLUME 91.1 FL (78-98); MEAN PLATELET VOLUME 9.4 FL (7.4-10.4); MONOCYTES % (AUTO) 15.8 % (2-12); NEUTROPHILS # (AUTO) 2.3 X10'3 (1.8-7.7); NEUTROPHILS % (AUTO) 62.5 % (42-75); RED BLOOD COUNT 2.38 X10'6 (4.70-6.10); RED CELL DISTRIBUTION WIDTH 18.9 % (11.5-14.5)
--- NOTE | 2018-12-15 06:45 | NUR ---
Problems reprioritized. Patient report given, questions answered & plan of care reviewed with SHARLENE Ng.
[2018-12-15 07:00] VITALS: BP 121/61
--- NOTE | 2018-12-15 07:03 | NUR ---
Patient in room [facility] 346. I have received report from Theresa SU and Carrol RN and had the opportunity to ask questions and assume patient care.
[2018-12-15 07:20] LABS: HEMATOCRIT 21.7 % (42.0-52.0)
[2018-12-15 07:21] LABS: PLATELET COUNT 39 X10'3 (140-440)
--- NOTE | 2018-12-15 07:25 | NUR ---
Paged Dr. Olivares regarding critical lab h/h = 7.4/21.9 and platelet 39
[2018-12-15 07:28] LABS: ANISOCYTOSIS 2+; NUCLEATED RED BLOOD CELLS 1 /100WBC (0-0); PLATELET ESTIMATE DECREASED; TOTAL CELLS COUNTED 100
[2018-12-15 07:29] LABS: GIANT PLATELET FEW; LARGE PLATELETS FEW; MICROCYTOSIS 1+
[2018-12-15 07:30] LABS: TEAR DROP CELLS FEW
[2018-12-15] MEDS: aspirin 81mg tab.chew PO SCH (08:00)
[2018-12-15] MEDS: clopidogrel 75mg tablet PO SCH (08:00)
[2018-12-15] MEDS: pantoprazole 40mg Tablet.DR PO SCH (08:15)
[2018-12-15] MEDS: aripiprazole 5mg tablet PO SCH (08:15)
[2018-12-15] MEDS: multivitamins, therapeutics tablet PO SCH (08:15)
[2018-12-15] MEDS: meclizine 12.5mg tablet PO SCH (08:16)
[2018-12-15] MEDS: venlafaxine 37.5mg tablet PO SCH ×2 (08:16→20:11)
[2018-12-15] MEDS: ferrous sulfate 325mg tablet PO SCH (08:16)
[2018-12-15] MEDS: amLODIPine 5mg tablet PO SCH (08:16)
[2018-12-15] MEDS: triamterene/HCTZ 37.5/25mg tablet PO SCH (08:16)
[2018-12-15] MEDS: tamsulosin 0.4mg capsule PO SCH ×2 (08:16→20:12)
[2018-12-15] MEDS: metoprolol tartrate 25mg tablet PO SCH ×2 (08:16→20:12)
[2018-12-15] MEDS: atorvastatin 20mg tablet PO SCH (08:17)
--- NOTE | 2018-12-15 08:28 | NUR ---
Clarified with Dr. Olivares on the phone if he wants me to give Plavix and aspirin due this am. I reported to him the h/h/, low platelet result and the positive stool OB result. Dr. Olivares said to hold Plavix and Aspirin
[2018-12-15] MEDS ORDERED: morphine 2 MG/ML inj. syringe IV PRN (09:10)
--- NOTE | 2018-12-15 09:37 | NUR ---
Per Dr. Olivares, we will need to transfuse platelet if patient bleeds, patient instructed to notify the nurse immediately if he bleeds like bloody stool
[2018-12-15 10:05] LABS: % IRON SATURATION 14 % (11-46); IRON 23 UG/DL (53-167); TOTAL IRON BINDING CAPACITY 168 UG/DL (259-388)
[2018-12-15 11:00] VITALS: BP 114/59
[2018-12-15] MEDS: HYDROcodone/acetaminophen 5mg/325mg tablet PO PRN ×2 (13:41→20:59)
[2018-12-15 18:03] LABS: BASOPHILS # (AUTO) 0.1 X10'3 (0-0.2); EOSINOPHILS # (AUTO) 0.1 X10'3 (0-0.9); HEMOGLOBIN 7.2 g/dl (14.0-17.9); LYMPHOCYTES # (AUTO) 0.7 X10'3 (1.1-4.8); MEAN CORPUSCULAR VOLUME 91.6 FL (78-98); MONOCYTES # (AUTO) 0.6 X10'3 (0-0.9); NEUTROPHILS # (AUTO) 2.1 X10'3 (1.8-7.7); WHITE BLOOD COUNT 3.6 X10'3 (4.5-11.0)
[2018-12-15 18:04] LABS: BASOPHILS % (AUTO) 3.5 % (0-1); EOSINOPHILS % (AUTO) 2.7 % (0-6); LYMPHOCYTES % (AUTO) 19.5 % (21-51); MEAN CORPUSCULAR HEMOGLOBIN 30.8 PG (27.0-31.0); MEAN CORPUSCULAR HGB CONC 33.6 g/dL (33.0-36.5); MEAN PLATELET VOLUME 8.7 FL (7.4-10.4); MONOCYTES % (AUTO) 16.8 % (2-12); NEUTROPHILS % (AUTO) 57.5 % (42-75); RED BLOOD COUNT 2.34 X10'6 (4.70-6.10); RED CELL DISTRIBUTION WIDTH 18.9 % (11.5-14.5)
[2018-12-15 18:18] LABS: HEMATOCRIT 21.4 % (42.0-52.0)
[2018-12-15 18:20] LABS: PLATELET COUNT 37 X10'3 (140-440)
--- NOTE | 2018-12-15 18:27 | NUR ---
Problems reprioritized. Patient report given, questions answered & plan of care reviewed with Russell SU.
[2018-12-15 18:30] VITALS: BP 118/59
[2018-12-16] VITALS: BP 146/77
--- NOTE | 2018-12-16 04:00 | NUR ---
STARTED BLADDER TRAINING TO FACILITATE DC' [employer] SAMUEL Addendum: 12/16/18 at 0432 by Demian Goodwin RN Amended: Links added.
--- NOTE | 2018-12-16 06:00 | NUR ---
Patient in room [facility] 346. I have received report from Russell and had the opportunity to ask questions and assume patient care.
--- NOTE | 2018-12-16 06:00 | NUR ---
Patient in room [facility] 346. I have received report from SHARLENE Wells and had the opportunity to ask questions and assume patient care.
[2018-12-16 06:22] LABS: ALBUMIN 2.3 G/DL (3.4-5.0); ANION GAP 7 (8-16); BLOOD UREA NITROGEN 18 MG/DL (7-18); BUN/CREATININE RATIO 16.1 (5.4-32.0); CALCIUM 8.6 MG/DL (8.5-10.1); CHLORIDE 103 MMOL/L (99-107); CREATININE 1.12 MG/DL (0.60-1.10); GLUCOSE 92 MG/DL (70-104); POTASSIUM 4.1 MMOL/L (3.5-5.1); SODIUM 137 MMOL/L (135-145); TOTAL CARBON DIOXIDE 27.3 MMOL/L (24-32); eGFR 64 ML/MIN
[2018-12-16 06:28] LABS: HEMOGLOBIN 7.7 g/dl (14.0-17.9); LYMPHOCYTES # (AUTO) 0.7 X10'3 (1.1-4.8); NEUTROPHILS # (AUTO) 2.4 X10'3 (1.8-7.7)
--- NOTE | 2018-12-16 06:29 | NUR ---
Problems reprioritized. Patient report given, questions answered & plan of care reviewed with LEONEL. Addendum: 12/16/18 at 0629 by Demian Goodwin RN Amended: Links added.
[2018-12-16 06:30] LABS: BASOPHILS # (AUTO) 0.1 X10'3 (0-0.2); BASOPHILS % (AUTO) 1.9 % (0-1); EOSINOPHILS % (AUTO) 0.8 % (0-6); HEMATOCRIT 22.7 % (42.0-52.0); LYMPHOCYTES % (AUTO) 18.1 % (21-51); MEAN CORPUSCULAR HGB CONC 34.2 g/dL (33.0-36.5); MEAN CORPUSCULAR VOLUME 90.9 FL (78-98); MEAN PLATELET VOLUME 8.5 FL (7.4-10.4); MONOCYTES # (AUTO) 0.6 X10'3 (0-0.9); NEUTROPHILS % (AUTO) 63.2 % (42-75); RED CELL DISTRIBUTION WIDTH 18.7 % (11.5-14.5); WHITE BLOOD COUNT 3.8 X10'3 (4.5-11.0)
[2018-12-16 06:50] LABS: PLATELET COUNT 39 X10'3 (140-440)
[2018-12-16 07:10] VITALS: BP 126/81
[2018-12-16] MEDS: meclizine 12.5mg tablet PO SCH (07:47)
[2018-12-16] MEDS: aripiprazole 5mg tablet PO SCH (07:47)
[2018-12-16] MEDS: multivitamins, therapeutics tablet PO SCH (07:48)
[2018-12-16] MEDS: amLODIPine 5mg tablet PO SCH (07:48)
[2018-12-16] MEDS: venlafaxine 37.5mg tablet PO SCH (07:48)
[2018-12-16] MEDS: metoprolol tartrate 25mg tablet PO SCH (07:48)
[2018-12-16] MEDS: tamsulosin 0.4mg capsule PO SCH (07:48)
[2018-12-16] MEDS: pantoprazole 40mg Tablet.DR PO SCH (07:49)
[2018-12-16] MEDS: triamterene/HCTZ 37.5/25mg tablet PO SCH (07:49)
[2018-12-16] MEDS: ferrous sulfate 325mg tablet PO SCH (07:49)
[2018-12-16] MEDS: atorvastatin 20mg tablet PO SCH (07:49)
[2018-12-16 08:00] VITALS: BP 126/81
[2018-12-16] MEDS: clopidogrel 75mg tablet PO SCH (08:00)
[2018-12-16] MEDS: aspirin 81mg tab.chew PO SCH (08:00)
[2018-12-16 08:23] LABS: NUCLEATED RED BLOOD CELLS 9 /100WBC (0-0); TOTAL CELLS COUNTED 100
[2018-12-16 08:25] LABS: ANISOCYTOSIS 2+; MICROCYTOSIS 1+; PLATELET ESTIMATE DECREASED
[2018-12-16 08:26] LABS: POLYCHROMASIA 1+
--- NOTE | 2018-12-16 09:57 | NUR ---
Student Medication Administration: For this medication-pass time frame, all medication were reviewed, dispensed, administered and documented per hospital policy by varun Shields.
--- NOTE | 2018-12-16 10:32 | NUR ---
Student documentation: I have reviewed and agree with all interventions, assessments performed and documented by Alyson, nursing secretary.
[2018-12-16 10:42] VITALS: BP 118/73
[2018-12-16] MEDS ORDERED: ESOM40CA49 PO (10:48)
[2018-12-16 11:33] VITALS: BP 121/64
--- NOTE | 2018-12-16 11:59 | NUR ---
Problems reprioritized. Patient report given, questions answered & plan of care reviewed with vera SU.
--- NOTE | 2018-12-16 14:53 | NUR ---
Patient discharged home with and son, stable and appropriate. IV removed, all belongings taken from room. New prescription transmitted to preferred pharmacy. Instructed and son on salzaar catheter care and discharge instructions, return demonstration by family. all questions answered.
--- NOTE | 2018-12-16 17:03 | NUR ---
reviewed student documentation
== END 2018-12-16 14:37 | disposition home or self-care (01) | DRG 378 ==
LOC: ER 14:02 → ED HOLD 20:37 → SUR 3N 22:21 → OBSVTOIN 12-16 09:30
PROVIDERS: ADMIT Internal Medicine; ATTEND Internal Medicine
PROC: 30233N1 Transfusion of Nonautologous Red Blood Cells into Peripheral Vein, Percutaneous Approach (ICD-10-PCS; principal; 2018-12-14)
DX: K92.2 Gastrointestinal hemorrhage, unspecified (principal); D62 Acute posthemorrhagic anemia; N17.9 Acute kidney failure, unspecified; N40.1 Benign prostatic hyperplasia with lower urinary tract symptoms; D69.6 Thrombocytopenia, unspecified; E78.5 Hyperlipidemia, unspecified; G89.29 Other chronic pain; I10 Essential (primary) hypertension; I25.10 Atherosclerotic heart disease of native coronary artery without angina pectoris; I48.91 Unspecified atrial fibrillation; J43.9 Emphysema, unspecified; K21.9 Gastro-esophageal reflux disease without esophagitis; M19.90 Unspecified osteoarthritis, unspecified site; F31.9 Bipolar disorder, unspecified; K59.00 Constipation, unspecified; T66.XXXA Radiation sickness, unspecified, initial encounter; Y84.2 Radiological procedure and radiotherapy as the cause of abnormal reaction of the patient, or of later complication, without mention of misadventure at the time of the procedure; M48.061 Spinal stenosis, lumbar region without neurogenic claudication; M51.26 Other intervertebral disc displacement, lumbar region; N28.9 Disorder of kidney and ureter, unspecified; R33.8 Other retention of urine; Z79.02 Long term (current) use of antithrombotics/antiplatelets; Z79.82 Long term (current) use of aspirin; I25.2 Old myocardial infarction; Z85.46 Personal history of malignant neoplasm of prostate; Z86.79 Personal history of other diseases of the circulatory system; Z87.11 Personal history of peptic ulcer disease; Z87.442 Personal history of urinary calculi; Z87.891 Personal history of nicotine dependence; Z92.3 Personal history of irradiation; Z90.49 Acquired absence of other specified parts of digestive tract; Z95.1 Presence of aortocoronary bypass graft; Z82.49 Family history of ischemic heart disease and other diseases of the circulatory system; Y92.89 Other specified places as the place of occurrence of the external cause
CPT/HCPCS: 36415; 71045; 72148; 80048; 80053; 81003; 82272; 82728; 83540; 83550; 85025; 85610; 86885; 86900; 86901; 86920; 87081; 93005; 96361; 96374; 96375; 99291; G0378; J2270; J2405; J7030; J8597; P9016